=== PATIENT | female | born 1945 | race Caucasian/White ===

== ENCOUNTER 2016-10-28 13:17 | Observation (INO) ==
[2016-10-28] MEDS ORDERED: Naloxone 0.4 MG/ML INJ IVP PRN (15:02)
[2016-10-28] MEDS ORDERED: 0.9 % Sodium Chloride 1,000 ML IVC SCH (15:15)
--- NOTE | 2016-10-28 15:53 | Internal Med History&Physical ---
<Anuja Dodd M - Last Filed: 10/28/16 16:46> Date of Encounter: 10/28/16 Time of Encounter: 15:50 Assessment and Plan (1) Atrial fibrillation with rapid ventricular response Current visit: No Status: Acute Patient with new onset Afib. Cardizem drip titrate to maintain HR 60-90. Urine tox screen TSH LFTs echocardiogram in the morning. (2) Febrile illness, acute Current visit: No Status: Acute [facility] reported patient's temperature reached 101. UA negative for UTI. CXR shows no active pulmonary disease. Patient complaining of facial swelling, pain and sore throat. Rapid strep was negative. Neck CT was suggestive of sinusitis which may be source of infection. Face CT ordered. Lactate was 3.1. Throat cultures and blood cultures ordered and sent at [facility]. 1L bolus given. Continue IV fluids 0.9NS at 80mL/hr. Ceftriaxone and Azithromycin IVPB recheck lactate (3) Sepsis Current visit: Yes Status: Acute elevated WBC of 15.2. Patient with reported fever of 101 at [facility] (per the provider's note). Tachycardia. Patient with facial pain and swelling and suspected sinusitis. Blood cultures ordered and sent by [facility] 1L bolus given. Initial lactate 3.1, repeat ordered Azithromycin and Ceftriaxone IVPB Qualifiers: Sepsis type: sepsis due to unspecified organism Qualified Code(s): A41.9 - Sepsis, unspecified organism (4) Face pain Current visit: Yes Status: Acute Patient reports swelling, pain and tenderness in the pre-auricular areas bilaterally. On exam, she does have firm swelling and tenderness bilaterally. Neck CT did not reveal any significant abnormalities, but suggested she may have sinusitis. Will obtain a face CT. (5) Unintended weight loss Current visit: No Status: Chronic Patient with significant unintended weight loss. She reports in the last year she has gone from 115 lbs to 77 lbs. She reports she had diarrhea for several months, but that resolved 1 months ago. She never had the diarrhea worked up. She also reports poor appetite for the last 6 months. She has significant family history of cancer, with 2 brothers who of esophageal and lung cancer , and her father of cancer as well. She has a 50+ pack year smoking history and continues to smoke. Concern her weight loss and cachexia is due to malignancy. CXR showed no active pulmonary disease, COPD and increase in interstitial lung markings likly due to chronic inflammation. CT of the neck did not reveal any abnormality. Nutrition consulted for dietary recommendations Patient should follow up with a PCP for cancer screenings including mammogram, colonoscopy, and chest CT. (6) COPD (chronic obstructive pulmonary disease) Current visit: Yes Status: Acute Patient with COPD diagnosis. She does not use oxygen at home. She denies any increased shortness of breath or coughing. Continue home dose of albuterol inhaler. Qualifiers: COPD type: emphysema Emphysema type: unspecified Qualified Code(s): J43.9 - Emphysema, unspecified (7) Polycythemia Current visit: Yes Status: Acute Patient with known history of polycythemia. She reports she was evaluated by a director of family service center and reports they said her polycythemia was due to her COPD. Hgb 18.5 and Hct 51.2 today, consistent with her diagnosis of polycythemia. Will recheck CBC tomorrow. (8) DVT prophylaxis Current visit: Yes Status: Acute Ambulate with assistance anti-embolic stockings Lovenox 40mg Sq daily Internal Medicine - H&P: HPI Chief complaint: afib Admitted From: Emergency Dept Plans for Post Hospital Care: Home History of present illness: Ms. Simmons is a 70 year old female with COPD and polycythemia who presented to [facility] ED with complaints of swelling and pain in her face and jaw. She reports the swelling appeared on the right side of her face on and was accompanied by pain in her throat. It went away on Sunday, but came back this morning on the left side as well as the right and she has the sore throat as well. She denies any fever, but reports chills. She denies congestion or runny nose. She reports her ears hurt and her throat hurts when she swallows or talks. She denies any chest pain, palpitations, increased shortness of breath or increased cough. She denies any nausea, vomiting or diarrhea, or dysuria. She reports she lost a significant amount of weight unintentionally in the last 2 years, and is now only 77 lbs. While she was at [facility] was noted that she went into A. fib with RVR, heart rate in the 140s to 150s. Her temperature also elder and was noted to be 101 in the report. Further evaluation in the [facility] revealed polycythemia with hemoglobin of 18.5 and hematocrit of 51.2. Elevated white blood cell count of 15.2. Troponin was negative at 0.01. Lactate was drawn and was found to be elevated at 3.1. UA was negative for infection, rapid strep was obtained and was negative. Chest x- ray showed no active pulmonary disease, COPD, increase in interstitial lung markings likely due to chronic inflammation. CT of the neck revealed no abnormalities. Patient was given a liter bolus given Rocephin IV piggyback and started on a Cardizem drip and transferred to [facility]. On exam, patient is alert and oriented, in no acute distress. She appears cachectic, her heart rate is controlled in the 70s to 80s on the Cardizem drip at 7.5 per hour. Lungs are clear bilaterally to auscultation, heart has a regular rhythm. She does not appear to have prominent masses bilaterally in the preauricular area, on palpation does not seem to be edematous, but is tender on the left. Past Med Surg Social Fam HX - Past Medical History Medical history: COPD, other (polycythemia) Psychiatric history: no psych history - Past Surgical History Surgical History: cataract, hysterectomy - Social History Smoking Status: Current every day smoker (54 Pack year history) Smokeless Tobacco Status: No Alcohol use: recent Drug use: none - Family History Father Adopted: No Family Member Ethnicity: Non- Living Status: Age at : 58 Cause of : cancer Hx Family Cancer: Yes Brother Living Status: Cause of : cancer Hx Family Cancer: Yes Internal Medicine - H&P: Meds Albuterol Sulfate [Proair Hfa] 2 puff IH Q6H 10/28/16 [History] Allergies No Known Allergies Allergy (Verified 03/28/15 11:12) All Systems PM: A 10-system review of systems was performed and is negative for pertinent findings except as documented above in the HPI. - Constitutional Constitutional: chills, fever(s), no night sweats - EENT Eyes: no change in vision, no discharge, no pain, no photophobia Ears: ear pain, no ear discharge, no tinnitus Nose, mouth and throat: sore throat, no dysphagia, no nasal discharge, no neck pain - Cardiovascular Cardiovascular ROS IM: no chest pain, no diaphoresis, no dyspnea, no lightheadedness, no palpitations, no syncope - Respiratory Respiratory: no cough, no dyspnea, no wheezing, no excessive phlegm production - Gastrointestinal Gastrointestinal: no abdominal pain, no diarrhea, no hematemesis, no hematochezia, no melena, no nausea, no vomiting - Genitourinary Genitourinary: no change in urinary stream, no dysuria, no flank pain, no hematuria - Musculoskeletal Musculoskeletal ROS IM: no numbness, no tingling - Integumentary Integumentary IM: no rash, no unusual bruising - Neurological Neurological ROS: no confusion, no convulsions, no focal weakness, no numbness, no tingling, no tremor(s) - Hematologic/Lymphatic Hematologic/Lymphatic: no easy bruising - Constitutional Vitals: Temp Pulse Resp BP Pulse Ox 99.2 F 85 16 138/96 98 10/28/16 14:57 10/28/16 14:57 10/28/16 14:57 10/28/16 14:57 10/28/16 14:57 General appearance: Present: cachectic, A&O X 3, pleasant, no acute distress - Head Head exam: Present: atraumatic, normocephalic - Eye Eye exam: Present: PERRL, conjuntiva pink, sclera anicteric Pupils: Present: PERRL - Neck Neck exam general surgery: Present: supple, trachea midline. Absent: lymphadenopathy - Respiratory Respiratory exam: Present: CTAB. Absent: accessory muscle use, rales, rhonchi, wheezes - Cardiovascular Cardiovascular exam: Present: irregular rhythm, +S1, +S2. Absent: diastolic murmur, gallop, rubs, systolic murmur - GI/Abdominal GI/Abdominal exam: Present: normal bowel sounds, soft, no peritoneal signs. Absent: distended, tenderness - Extremities Exam Extremities exam: Present: warm, radial pulses palpable and symetrical. Absent : calf tenderness, cyanotic, pedal edema - Neurological Exam Neurological exam: Present: CN II-XII intact, oriented X3, no focal deficits. Absent: facial droop, speech deficit - Skin Skin exam: Present: dry, intact Internal Med - H&P Results - Labs Labs: Labs from [facility]za: Hgb 18.5 Hct 51.2 Wbc 15.2 Plt 237 Na 133 K 4.0 Cl 88 CO2 24 BUN 15 Cr 0.78 Glu 121 Trop 0.01 Lactate 3.1 <Bernard Rincon - Last Filed: 10/28/16 17:56> Date of Encounter: 10/28/16 Internal Medicine - H&P: HPI History of present illness: Ms. Simmons is a 70 year old female All Systems PM: A 10-system review of systems was performed and is negative for pertinent findings except as documented above in the HPI. - Constitutional Vitals: Temp Pulse Resp BP Pulse Ox 99.2 F 85 18 138/96 94 10/28/16 14:57 10/28/16 14:57 10/28/16 16:49 10/28/16 14:57 10/28/16 16:49 Internal Med - H&P Results - Labs Labs: Cardiac Enzymes 10/28/16 Range/Units 16:20 Troponin I 0.01 (0-0.03) ng/mL Liver Function 10/28/16 Range/Units 16:20 Total Bilirubin 0.6 (0.2-1.2) mg/dL Direct Bilirubin 0.3 (0.0-0.5) mg/dL AST 19 (5-34) Units/L ALT 9 (0-55) Units/L Alkaline Phosphatase 50 (38-126) Units/L Albumin 3.3 L (3.5-5.0) g/dL - Attending Attestation I have independently interviewed and examined this patient. I have reviewed the EMR extensively and discussed plan of care the resident/nurse practitioner. 70 Y/O F with PMH of COPD and Tobacco abuse, Polycythemia, presented to outside facility with complains of unintentional weight loss for several months, bilateral jaw pain and swelling. She was found to be in Afib with RVR, and was found to be febrile to temperature of 101. She is evaluated at bedside and complained of pain in the back of her throat since 2 days ago and bilateral jaw tenderness and swelling since 2 days ago. She denies myalgia, but she endorses chills, she denies rhinorrhea, sick contacts or recent travels, she denies chest pain, she denies SOB, she smokes daily and has a chronic cough that has not worsened, no change in sputum color, no odynophagia, no dysphagia, she has significant family hx of cancer of the head and neck. Physical exam reveals a cachectic, chronically ill-looking patient in no form of distress, HR 110, she has facial roundness on the maxillary region with tenderness on palpation, no fluctauncy, and she has posterior cervical lymph nodes bilaterally, no pre-auricular drainage, throat exam reveals no hyperemia, no visible masses, chest is clear bilaterally, HS S1, S2 only, no m/g/r, abdomen is scaphoid. Labs and Imaging reviewed: Leukocytosis with left shift, polycythemia, hyponatremia, strept swab negative, Lactate 3.1, repeat 1.2, TSH WNL, coagulation panel WNL. Neck CT shows emphysema, paranasal sinus disease, worse in R sphenoid, atherosclerotic disease. CXR with evidence of COPD and interstitial infiltrates. Assessment and Plan: Suspected sepsis with likely source in head and neck, possible sinus disease, unlikely malignancy, follow blood and throat culture, obtain facial CT without contrast, repeat lactate , start antibiotic with streptococcus coverage , Newly diagnosed Afib, no chest pain, obtain Utox, check ECHO. Continue Cardizem , start po and titrate off slowly, smoking cessation encouraged, NRT prn. Polycythemia, chronic, stable secondary to chronic hypoxia from smoking Facial pain, as in management of suspected sepsis, pain control Rest of details as in [facility] documentation
[2016-10-28] MEDS: 0.9 % Sodium Chloride 1,000 ML IVC SCH (16:05)
[2016-10-28] MEDS: Azithromycin 500 MG in D5% in Water 250 ML IVPB SCH (17:10)
[2016-10-28 17:12] LABS: Albumin 3.3 g/dL (3.5-5.0); Bilirubin,Direct 0.3 mg/dL (0.0-0.5); Bilirubin,Indirect 0.3 mg/dL (0.0-1.2); Bilirubin,Total 0.6 mg/dL (0.2-1.2); Globulin 3.2 g/dL (2.4-3.5); Total Protein 6.5 g/dL (6.0-8.3)
[2016-10-28 17:33] LABS: Thyroid Stimulating Hormone 0.885 mcIU/mL (0.350-4.840)
[2016-10-28 21:16] LABS: Amphetamine Screen,Urine Negative ng/mL (Cutoff=1000); Barbiturate Screen,Urine Negative ng/mL (Cutoff=200); Benzodiazepines Screen,Urine Negative ng/mL (Cutoff=200); Cannabinoid Screen,Urine Negative ng/mL (Cutoff = 50); Cocaine Screen,Urine Negative ng/mL (Cutoff= 300); Opiate Screen,Urine Negative ng/mL (Cutoff=300); Phencyclidine Screen,Urine Negative ng/mL (Cutoff=25)
[2016-10-28] MEDS: Melatonin 3 MG TABLET PO PRN (22:29)
[2016-10-29] MEDS: 0.9 % Sodium Chloride 1,000 ML IVC SCH (02:00)
[2016-10-29] MEDS: *HR* Enoxaparin 40 MG/0.4 ML SYRINGE SQ SCH (05:29)
[2016-10-29] MEDS: Acetaminophen 325 MG TABLET PO PRN (05:35)
[2016-10-29 06:14] LABS: BUN/Creatinine Ratio 17 (6-26); Blood Urea Nitrogen 10 mg/dL (7-20); Calcium 8.7 mg/dL (8.6-10.8); Carbon Dioxide 21 mEq/L (19-29); Chloride 98 mEq/L (98-109); Glucose 79 mg/dL (70-99); Osmolality,Calculated 272 (280-300); Sodium 132 mEq/L (136-145); eGFR For African Americans > 60 (> 60); eGFR For Non-African Americans > 60 (> 60)
[2016-10-29 06:19] LABS: Potassium 3.2 mEq/L (3.5-4.5)
[2016-10-29 06:53] LABS: Basophils # 0.1 K/mcL (0.0-0.2); Basophils % 0.6 %; Eosinophils # 0.1 K/mcL (0.0-0.6); Eosinophils % 0.6 %; Hematocrit 38.7 % (35.3-44.9); Hemoglobin 13.2 g/dL (11.5-15.4); Immature Granulocytes % 0.3 % (0-4); Immature Platelets 5.9 % (1.1-6.1); Lymphocytes # 1.8 K/mcL (0.6-4.6); Lymphocytes % 19.7 %; Mean Corpuscular HGB Conc 34.1 g/dL (31.6-35.5); Mean Corpuscular Hemoglobin 33.8 pg (28.0-33.3); Mean Platelet Volume 9.9 fL (9.4-12.4); Monocytes % 11.1 %; Neutrophils # 6.3 K/mcL (1.6-8.9); Platelet Count 174 K/mcL (140-400); Red Blood Count 3.91 M/mcL (3.82-4.97); Red Cell Distribution Width 11.9 % (11.5-14.5); Segmented Neutrophils % 67.7 %
--- NOTE | 2016-10-29 14:08 | Internal Med Progress Note ---
Date of Encounter: 11/06/16 Time of Encounter: 14:06 - Assessment and plan (1) Face pain Status: Resolved Assessment and plan: Ongoing face pain. CT head/CT films negative for any obvious infective process. Pain is better with pain medication. (2) Atrial fibrillation with rapid ventricular response Status: Inactive Assessment and plan: Patient has atrial fibrillation with rapid ventricular response. This is likely triggered by underlying infective process. We will control the rate with Cardizem. (3) COPD (chronic obstructive pulmonary disease) Status: Chronic Assessment and plan: Stable COPD. Qualifiers: COPD type: emphysema Emphysema type: unspecified Qualified Code(s): J43.9 - Emphysema, unspecified (4) Hypertension Status: Inactive Assessment and plan: Resume home medication Qualifiers: Hypertension type: essential hypertension Qualified Code(s): I10 - Essential (primary) hypertension - Subjective Interval history: Patient seen and examined. Chart reviewed. Patient looks ill. She complains of facial pain. Patient claims that she has these symptoms ongoing for last 3-4 days. Seen by [facility] emergency room. She was transferred here for further management. - Constitutional Vitals: Temp Pulse Resp BP Pulse Ox 98.7 F 67 16 126/80 92 10/29/16 11:47 10/29/16 11:47 10/29/16 11:47 10/29/16 11:47 10/29/16 11:47 General appearance: Present: cachectic, A&O X 3, pleasant, no acute distress - Head Head exam: Present: atraumatic, normocephalic - Eye Eye exam: Present: PERRL, conjuntiva pink, sclera anicteric Pupils: Present: PERRL - Neck Neck exam general surgery: Present: supple, trachea midline. Absent: lymphadenopathy - Respiratory Respiratory exam: Present: CTAB. Absent: accessory muscle use, rales, rhonchi, wheezes - Cardiovascular Cardiovascular exam: Present: RRR, +S1, +S2. Absent: diastolic murmur, gallop, rubs, systolic murmur - GI/Abdominal GI/Abdominal exam: Present: normal bowel sounds, soft, no peritoneal signs. Absent: distended, tenderness - Extremities Exam Extremities exam: Present: warm, radial pulses palpable and symetrical. Absent : calf tenderness, cyanotic, pedal edema - Neurological Exam Neurological exam: Present: CN II-XII intact, oriented X3, no focal deficits. Absent: pronater drift, facial droop, speech deficit - Skin Skin exam: Present: dry, intact Internal Medicine: Result - Labs CBC & Chem 7: 11/01/16 04:57 11/01/16 04:57 Labs: Short CBC 10/29/16 Range/Units 06:42 WBC 9.3 (4.3-11.1) K/mcL Hgb 13.2 D (11.5-15.4) g/dL Hct 38.7 (35.3-44.9) % Plt Count 174 (140-400) K/mcL Neutrophils # 6.3 (1.6-8.9) K/mcL BMP 10/29/16 05:11 Sodium 132 L Potassium 3.2 L Chloride 98 Carbon Dioxide 21 BUN 10 Creatinine 0.59 Glucose 79 Calcium 8.7 D Cardiac Enzymes 10/28/16 10/28/16 Range/Units 16:20 21:41 Troponin I 0.01 0.01 (0-0.03) ng/mL Liver Function 10/28/16 Range/Units 16:20 Total Bilirubin 0.6 (0.2-1.2) mg/dL Direct Bilirubin 0.3 (0.0-0.5) mg/dL AST 19 (5-34) Units/L ALT 9 (0-55) Units/L Alkaline Phosphatase 50 (38-126) Units/L Albumin 3.3 L (3.5-5.0) g/dL - Impressions Impressions Face CT 10/28/16 16:39 IMPRESSION: No acute traumatic injury of the facial bones. Advanced degenerative changes at the temporomandibular joint bilaterally. No findings specifically to explain patient's symptoms. D/ / 10/28/2016 22:38:55 Ronnie Lima MD / Earlene Lebron Interpreting Provider: Ronnie Lima MD Consult Discharge Plan - Plan Instructions: Diltiazem (By mouth), Prednisone (By mouth), Azithromycin (By mouth), Budesonide/Formoterol (By breathing), Rivaroxaban (By mouth), Atrial Fibrillation (DC), Chronic Obstructive Pulmonary Disease (DC), Sepsis (DC), Chronic Hypertension (DC) Referrals: Roa,Amy C, [facility] [Advanced Practice Nurse] - 11/20/16 1:00 pm Jay Chin, [Partnered Physician] - (Patient would like to establish with Dr. Jay Chin, please sched 1 week f/u COPD, Bone scan) Prescriptions: Azithromycin [Zithromax] 500 mg PO Q24H #8 tablet Budesonide/Formoterol 160/4.5 [Symbicort 160/4.5] 2 puff IH BIDR #1 hfa.aer.ad Diltiazem CD (24hr) [Cardizem CD] 180 mg PO DAILY #30 cap.er.24h PredniSONE 40 mg PO DAILY #8 tablet Rivaroxaban [Xarelto] 15 mg PO 1700 #30 tablet
[2016-10-29] MEDS ORDERED: Potassium Chloride Elixir 20 MEQ/15 ML UDC PO ONE (15:02)
[2016-10-29] MEDS: Azithromycin 500 MG in D5% in Water 250 ML IVPB SCH (15:26)
--- NOTE | 2016-10-29 21:13 | ECHO - Doppler Report ---
Echocardiogram Name: Nikkie Simmons Date of Study: 10/29/2016 Date: 1945 Ht: 51.0 in Medical Record#: [id number] Age: 70 Wt: 79.0 lb Gender: Female BSA: 1.12 Order #: [id number] Location: [facility] Room #: [id number] Reading Physician: Rodolfo Banks DO, FACNESTOR Matthews Home Support Worker: Holly Lowe RDCS Ordering Physician: Anuja Dodd CNP Primary Physician: None Indications: New onset atrial fibrillation Impressions: LVEF 60-65%. Normal LV chamber size, wall thickness and function. Normal right ventricular structure and function. Mild pulmonary hypertension. Estimated RVSP = 38 mmHg. No significant valvular dysfunction. Left Ventricular Wall Motion: Rest Echo Findings All wall segments showed normal motion. Findings: Study Quality * Technically adequate exam. ECG Findings * Atrial fibrillation. Left Ventricle * LVEF 60-65%. * Normal LV chamber size, wall thickness and function. Right Ventricle * Normal right ventricular structure and function. Left Atrium * Normal left atrial size. Right Atrium * Normal right atrial size. Interatrial Septum * No evidence of PFO by color Doppler. Aortic Valve * Trileaflet aortic valve. * Mildly sclerotic aortic valve leaflets. * No aortic regurgitation. * No aortic stenosis. Mitral Valve * Normal mitral valve structure and function. * No mitral regurgitation. * No mitral stenosis. Tricuspid Valve * Normal tricuspid valve structure and function. * Trace tricuspid regurgitation. * Mild pulmonary hypertension. * Estimated RVSP is 38 mmHg. * Estimated RA pressure is 5 mmHg. Pulmonic Valve * Normal pulmonic valve structure and function. * No pulmonic regurgitation. Aorta * Normally sized aortic root. Pericardium * The pericardium appears normal. IVC * Normal IVC dimensions and inspiratory collapse. Pulmonary Artery * Normal visualized portions of the main pulmonary artery. History Hypertension History of Smoking Years 50 Packs 1 Family History of CAD Measurements: BP: 113/ 65 2D Normal Values RVIDd: 2.70 cm <2.7 cm IVSd: .60 cm 0.6 - 1.0 cm LVIDd: 4.20 cm 3.7 - 5.6 cm LVPWd: .70 cm 0.6 - 1.1 cm LVIDs: 2.70 cm 1.5 - 3.6 cm AO: 2.30 cm < 4.0 cm LA: 2.90 cm 2.0 - 4.0cm %FS: 35.70 cm >25 % LVOT Diam: 1.80 cm LA volume: 24 Mitral Valve Peak E:.84 m/sec Peak A:.33 m/sec E/A Ratio:2.5 Peak E' Lat Tariq:7.8 cm/s Peak E' Med Tariq:7.41 cm/s E/E' Lat Ratio:10.8 E/E' Med Ratio:11.4 Tricuspid Valve TV Regurg Peak Grad: 33.00mmHg TV Regurg Peak Tariq: 2.89m/sec Updated by Rodolfo Banks DO, FACCassie, NESTOR, SHIV on 10/29/2016 9:08:00 PM electronically signed on 10/29/2016 9:08:48 PM with status of Final Wall Motion Moreno: 1=Normal, 2=Hypokinesis, 3=Akinesis, 4=Dyskinesis, 5=Aneurysmal, 6=Hyperkinetic, X=Not Visualized (Blank)=Missing
[2016-10-29] MEDS: Melatonin 3 MG TABLET PO PRN (22:01)
[2016-10-30] MEDS: Acetaminophen 325 MG TABLET PO PRN (03:20)
[2016-10-30 04:50] LABS: Basophils # 0.1 K/mcL (0.0-0.2); Basophils % 0.7 %; Eosinophils # 0.1 K/mcL (0.0-0.6); Eosinophils % 1.8 %; Hematocrit 40.8 % (35.3-44.9); Hemoglobin 14.1 g/dL (11.5-15.4); Immature Granulocytes % 0.3 % (0-4); Lymphocytes # 1.9 K/mcL (0.6-4.6); Lymphocytes % 26.1 %; Mean Corpuscular HGB Conc 34.6 g/dL (31.6-35.5); Mean Corpuscular Hemoglobin 34.6 pg (28.0-33.3); Mean Platelet Volume 10.5 fL (9.4-12.4); Monocytes # 0.7 K/mcL (0.0-1.3); Neutrophils # 4.4 K/mcL (1.6-8.9); Platelet Count 176 K/mcL (140-400); Red Blood Count 4.08 M/mcL (3.82-4.97); Red Cell Distribution Width 11.9 % (11.5-14.5); Segmented Neutrophils % 61.1 %
[2016-10-30 05:03] LABS: Alanine Aminotransferase 9 Units/L (0-55); Albumin 2.8 g/dL (3.5-5.0); Albumin/Globulin Ratio 0.9 (1.1-2.2); Alkaline Phosphatase 47 Units/L (38-126); Aspartate Amino Transferase 17 Units/L (5-34); BUN/Creatinine Ratio 11 (6-26); Bilirubin,Total 0.6 mg/dL (0.2-1.2); Blood Urea Nitrogen 7 mg/dL (7-20); Calcium 9.5 mg/dL (8.6-10.8); Carbon Dioxide 21 mEq/L (19-29); Chloride 103 mEq/L (98-109); Globulin 3.1 g/dL (2.4-3.5); Glucose 79 mg/dL (70-99); Osmolality,Calculated 277 (280-300); Potassium 3.2 mEq/L (3.5-4.5); Sodium 135 mEq/L (136-145); Total Protein 5.9 g/dL (6.0-8.3); eGFR For African Americans > 60 (> 60); eGFR For Non-African Americans > 60 (> 60)
[2016-10-30] MEDS: *HR* Enoxaparin 40 MG/0.4 ML SYRINGE SQ SCH (05:52)
--- NOTE | 2016-10-30 09:55 | Internal Med Progress Note ---
<Iva Noel - Last Filed: 10/30/16 15:51> Date of Encounter: 10/30/16 Time of Encounter: 09:20 - Assessment and plan (1) Face pain Current Visit: Yes Status: Acute Assessment and plan: Suspect TMJ degenerative changes per Face CT: Face CT 10/28/16 16:39 Advanced degenerative changes at the temporomandibular joint bilaterally. No findings specifically to explain patient's symptoms. (2) Atrial fibrillation with rapid ventricular response Current Visit: No Status: Acute Assessment and plan: Afib RVR, EKG 10/28/16 on admission. Possible LA hypertrophy, with underlying lung disease. Echo EF 60-65%, normal LV size, wall thickness and function. No evidence of LA or RA enlargement. Mild PAH RVSP 38 No VHD Possible manifestation of vasculitis? Malignancy? Has over 50 py smoking history. Transition to oral cardizem. TSH wnl, UDS neg. Will discuss long-term a/c when pt more receptive. CHADVASC 3 (3) COPD (chronic obstructive pulmonary disease) Current Visit: Yes Status: Acute Assessment and plan: Stable COPD. Qualifiers: COPD type: emphysema Emphysema type: unspecified Qualified Code(s): J43.9 - Emphysema, unspecified (4) Hypertension Current Visit: No Status: Acute Assessment and plan: Resume home medication, steady SBP 130s. Qualifiers: Hypertension type: unspecified secondary hypertension Qualified Code(s): I15.9 - Secondary hypertension, unspecified; I15 - Secondary hypertension (5) Unintended weight loss Current Visit: No Status: Chronic Assessment and plan: Unintentional weight loss, with BMI 16.5, over 50 years smoking. Upon interview, she did not have a screening c-scope, has not had medical care. Concern for underlying malignancy, paraneoplastic process contributing to Afib as well. Will order for CT Chest, CT Abd/Pelvis with contrast. - Subjective Interval history: Pt seen/eval at bedside. She would endorse general events prompting hospitalization though recollection is vague. Affirms PMH COPD, drinking alcohol about 6+ beers in one sitting daily to every other day. Also smokes about 1/2 to 1ppd going on since teens. She denies any heart racing, chest pain , pressure, dyspnea, nvd. - Constitutional Vitals: Temp Pulse Resp BP Pulse Ox 98.2 F 75 17 138/69 95 10/30/16 07:25 10/30/16 07:25 10/30/16 07:25 10/30/16 07:25 10/30/16 07:25 General appearance: Present: cachectic, A&O X 3, pleasant, no acute distress - Head Head exam: Present: atraumatic, normocephalic - Eye Eye exam: Present: EOMI, sclera anicteric - ENT ENT exam: Present: mucous membranes moist - Neck Neck exam general surgery: Present: supple, trachea midline - Respiratory Respiratory exam: Present: prolonged expiratory phase, rhonchi, wheezes - Cardiovascular Cardiovascular exam: Present: +S1, +S2. Absent: JVD - GI/Abdominal GI/Abdominal exam: Present: soft, no peritoneal signs. Absent: tenderness - Extremities Exam Extremities exam: Present: warm, radial pulses palpable and symetrical - Neurological Exam Neurological exam: Present: strengths equal and symetr throughout. Absent: facial droop Internal Medicine: Result - Labs CBC & Chem 7: 10/30/16 03:26 10/30/16 03:26 Labs: Short CBC 10/30/16 Range/Units 03:26 WBC 7.1 (4.3-11.1) K/mcL Hgb 14.1 (11.5-15.4) g/dL Hct 40.8 (35.3-44.9) % Plt Count 176 (140-400) K/mcL Neutrophils # 4.4 (1.6-8.9) K/mcL BMP 10/30/16 03:26 Sodium 135 L Potassium 3.2 L Chloride 103 Carbon Dioxide 21 BUN 7 Creatinine 0.63 Glucose 79 Calcium 9.5 Liver Function 10/30/16 Range/Units 03:26 Total Bilirubin 0.6 (0.2-1.2) mg/dL AST 17 (5-34) Units/L ALT 9 (0-55) Units/L Alkaline Phosphatase 47 (38-126) Units/L Albumin 2.8 L (3.5-5.0) g/dL - Impressions Impressions Face CT 10/28/16 16:39 IMPRESSION: No acute traumatic injury of the facial bones. Advanced degenerative changes at the temporomandibular joint bilaterally. No findings specifically to explain patient's symptoms. D/ / 10/28/2016 22:38:55 Ronnie Lima MD / Earlene Lebron Interpreting Provider: Ronnie Lima MD Consult Discharge Plan - Plan Referrals: NO,PCP [Primary Care Provider] - <Сергей Davis P - Last Filed: 10/30/16 18:58> Date of Encounter: 10/30/16 - Assessment and plan (1) Face pain Current Visit: Yes Status: Acute (2) Atrial fibrillation with rapid ventricular response Current Visit: No Status: Acute (3) COPD (chronic obstructive pulmonary disease) Current Visit: Yes Status: Acute Qualifiers: COPD type: emphysema Emphysema type: unspecified Qualified Code(s): J43.9 - Emphysema, unspecified (4) Hypertension Current Visit: No Status: Acute Qualifiers: Hypertension type: unspecified secondary hypertension Qualified Code(s): I15.9 - Secondary hypertension, unspecified; I15 - Secondary hypertension - Constitutional Vitals: Temp Pulse Resp BP Pulse Ox 98.7 F 69 16 153/86 94 10/30/16 14:59 10/30/16 14:59 10/30/16 14:59 10/30/16 14:59 10/30/16 14:59 Internal Medicine: Result - Labs CBC & Chem 7: 10/30/16 03:26 10/30/16 03:26 Labs: Short CBC 10/30/16 Range/Units 03:26 WBC 7.1 (4.3-11.1) K/mcL Hgb 14.1 (11.5-15.4) g/dL Hct 40.8 (35.3-44.9) % Plt Count 176 (140-400) K/mcL Neutrophils # 4.4 (1.6-8.9) K/mcL BMP 10/30/16 03:26 Sodium 135 L Potassium 3.2 L Chloride 103 Carbon Dioxide 21 BUN 7 Creatinine 0.63 Glucose 79 Calcium 9.5 Liver Function 10/30/16 Range/Units 03:26 Total Bilirubin 0.6 (0.2-1.2) mg/dL AST 17 (5-34) Units/L ALT 9 (0-55) Units/L Alkaline Phosphatase 47 (38-126) Units/L Albumin 2.8 L (3.5-5.0) g/dL - Impressions Impressions Face CT 10/28/16 16:39 IMPRESSION: No acute traumatic injury of the facial bones. Advanced degenerative changes at the temporomandibular joint bilaterally. No findings specifically to explain patient's symptoms. D/ / 10/28/2016 22:38:55 Ronnie Lima MD / Earlene Lebron Interpreting Provider: Ronnie Lima MD - Attending Attestation I examined this patient and my medical decision-making was reviewed with the INDUCTION COORDINATION ENGINEER/PA/Advanced Practice Nurse/Resident Physician. I agree with the documented findings, disposition and treatment plan as described except to the extent set forth below.
[2016-10-30] MEDS ORDERED: Potassium Chloride Elixir 20 MEQ/15 ML UDC PO ONE (15:56)
[2016-10-30] MEDS ORDERED: Magnesium Oxide 400 MG TABLET PO SCH (16:00)
[2016-10-30] MEDS: Azithromycin 500 MG in D5% in Water 250 ML IVPB SCH (17:12)
--- NOTE | 2016-10-30 19:00 | Electrocardiograph Report ---
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
[2016-10-31 05:41] LABS: Basophils # 0.1 K/mcL (0.0-0.2); Basophils % 0.9 %; Eosinophils # 0.3 K/mcL (0.0-0.6); Eosinophils % 3.2 %; Hematocrit 41.9 % (35.3-44.9); Hemoglobin 14.7 g/dL (11.5-15.4); Immature Granulocytes % 0.2 % (0-4); Lymphocytes # 1.8 K/mcL (0.6-4.6); Mean Corpuscular HGB Conc 35.1 g/dL (31.6-35.5); Mean Corpuscular Hemoglobin 34.8 pg (28.0-33.3); Mean Corpuscular Volume 99.1 fL (83.0-100.0); Mean Platelet Volume 10.4 fL (9.4-12.4); Monocytes # 0.7 K/mcL (0.0-1.3); Monocytes % 8.9 %; Neutrophils # 5.2 K/mcL (1.6-8.9); Platelet Count 205 K/mcL (140-400); Red Blood Count 4.23 M/mcL (3.82-4.97); Red Cell Distribution Width 11.9 % (11.5-14.5); Segmented Neutrophils % 64.8 %
[2016-10-31 06:04] LABS: Alanine Aminotransferase 12 Units/L (0-55); Albumin 2.9 g/dL (3.5-5.0); Albumin/Globulin Ratio 0.9 (1.1-2.2); Alkaline Phosphatase 48 Units/L (38-126); Aspartate Amino Transferase 18 Units/L (5-34); BUN/Creatinine Ratio 8 (6-26); Bilirubin,Total 0.5 mg/dL (0.2-1.2); Blood Urea Nitrogen 5 mg/dL (7-20); Calcium 9.4 mg/dL (8.6-10.8); Carbon Dioxide 22 mEq/L (19-29); Chloride 102 mEq/L (98-109); Globulin 3.1 g/dL (2.4-3.5); Glucose 80 mg/dL (70-99); Osmolality,Calculated 280 (280-300); Potassium 3.3 mEq/L (3.5-4.5); Sodium 137 mEq/L (136-145); eGFR For African Americans > 60 (> 60); eGFR For Non-African Americans > 60 (> 60)
[2016-10-31] MEDS: *HR* Enoxaparin 40 MG/0.4 ML SYRINGE SQ SCH (06:29)
[2016-10-31] MEDS: Potassium Chloride Elixir 20 MEQ/15 ML UDC PO SCH (09:24)
[2016-10-31] MEDS: Magnesium Oxide 400 MG TABLET PO SCH (09:24)
--- NOTE | 2016-10-31 09:43 | Internal Med Progress Note ---
<Iva Noel - Last Filed: 10/31/16 17:18> Date of Encounter: 10/31/16 Time of Encounter: 09:00 - Assessment and plan (1) Face pain Current Visit: Yes Status: Acute Assessment and plan: Suspect TMJ degenerative changes per Face CT: Face CT 10/28/16 16:39 Advanced degenerative changes at the temporomandibular joint bilaterally. No findings specifically to explain patient's symptoms. Improved, no signs of soft tissue swelling or airway compromise (2) Atrial fibrillation with rapid ventricular response Current Visit: No Status: Acute Assessment and plan: Afib RVR, EKG 10/28/16 on admission. Possible LA hypertrophy, with underlying lung disease. Echo EF 60-65%, normal LV size, wall thickness and function. No evidence of LA or RA enlargement. Mild PAH RVSP 38 No VHD Possible manifestation of vasculitis? Malignancy? Has over 50 py smoking history. Transition to oral cardizem. TSH wnl, UDS neg. Patient is agreeable to long-term a/c, we discussed R/B/A, she would prefer once -a-day DOAC. DC lovenox. Will start xarelto this evening, SW consult for butler concerns. CHADVASC 3 (3) COPD (chronic obstructive pulmonary disease) Current Visit: Yes Status: Acute Assessment and plan: Stable COPD. Due to persistent wheeze, will start oral prednisone 10/31/16, aim 5 day course. Qualifiers: COPD type: emphysema Emphysema type: unspecified Qualified Code(s): J43.9 - Emphysema, unspecified (4) Hypertension Current Visit: No Status: Acute Assessment and plan: Resume home medication. Will add prn hydralazine for SBP>170 Qualifiers: Hypertension type: unspecified secondary hypertension Qualified Code(s): I15.9 - Secondary hypertension, unspecified (5) Unintended weight loss Current Visit: No Status: Chronic Assessment and plan: Unintentional weight loss, with BMI 16.5, over 50 years smoking. Upon interview, she did not have a screening c-scope, has not had medical care. Concern for underlying malignancy, paraneoplastic process contributing to Afib as well. Abdomen/Pelvis CT 10/30/16 15:54 IMPRESSION: Punctate hypodensities in the spleen are most consistent with hemangiomas or granuloma. No mass or adenopathy is otherwise identified. Small right pleural effusion. Chest CT 10/30/16 15:54 IMPRESSION: Small right pleural effusion. Mild right basilar atelectasis. No intrathoracic mass or adenopathy is identified. Osteo sclerotic foci, most prominent at C5 and C6. (Also reference is made to sclerotic focus in the L2 vertebral body on CT abdomen. ) Although the sclerotic lesions may be reactive, metastasis of unknown primary is considered. Correlation with bone scan would be helpful. Will order for bone scan as outpatient. - Subjective Interval history: Pt seen/eval at bedside. She continues to have some cough and wheeze. She is agreeable to superintendent terminal ac, prefers xarelto. - Constitutional Vitals: Temp Pulse Resp BP Pulse Ox 98.2 F 74 15 162/96 95 10/31/16 07:21 10/31/16 07:21 10/31/16 07:21 10/31/16 07:21 10/31/16 07:21 General appearance: Present: cachectic, A&O X 3, pleasant, no acute distress, underweight - Head Head exam: Present: atraumatic, normocephalic - Eye Eye exam: Present: sclera anicteric - ENT ENT exam: Present: mucous membranes moist - Neck Neck exam general surgery: Present: supple, trachea midline - Respiratory Respiratory exam: Present: prolonged expiratory phase, rhonchi, wheezes ( scattered). Absent: accessory muscle use - Cardiovascular Cardiovascular exam: Present: +S1, +S2. Absent: JVD - GI/Abdominal GI/Abdominal exam: Present: soft, no peritoneal signs. Absent: tenderness - Extremities Exam Extremities exam: Present: warm, radial pulses palpable and symetrical Internal Medicine: Result - Labs CBC & Chem 7: 10/31/16 04:52 10/31/16 04:52 Labs: Short CBC 10/31/16 Range/Units 04:52 WBC 8.1 (4.3-11.1) K/mcL Hgb 14.7 (11.5-15.4) g/dL Hct 41.9 (35.3-44.9) % Plt Count 205 (140-400) K/mcL Neutrophils # 5.2 (1.6-8.9) K/mcL BMP 10/31/16 04:52 Sodium 137 Potassium 3.3 L Chloride 102 Carbon Dioxide 22 BUN 5 L Creatinine 0.61 Glucose 80 Calcium 9.4 Liver Function 10/31/16 Range/Units 04:52 Total Bilirubin 0.5 (0.2-1.2) mg/dL AST 18 (5-34) Units/L ALT 12 (0-55) Units/L Alkaline Phosphatase 48 (38-126) Units/L Albumin 2.9 L (3.5-5.0) g/dL - Impressions Impressions Abdomen/Pelvis CT 10/30/16 15:54 IMPRESSION: Punctate hypodensities in the spleen are most consistent with hemangiomas or granuloma. No mass or adenopathy is otherwise identified. Small right pleural effusion. D/ / Terrence Gonzalez MD / Terrence Gonzalez MD Interpreting Provider: Terrence Gonzalez MD Chest CT 10/30/16 15:54 IMPRESSION: Small right pleural effusion. Mild right basilar atelectasis. No intrathoracic mass or adenopathy is identified. Osteo sclerotic foci, most prominent at C5 and C6. (Also reference is made to sclerotic focus in the L2 vertebral body on CT abdomen. ) Although the sclerotic lesions may be reactive, metastasis of unknown primary is considered. Correlation with bone scan would be helpful. D/ / Terrence Gonzalez MD / Terrence Gonzalez MD Interpreting Provider: Terrence Gonzalez MD Consult Discharge Plan - Plan Referrals: NO,PCP [Primary Care Provider] - <Ad Erazo - Last Filed: 10/31/16 23:29> Date of Encounter: 10/31/16 - Assessment and plan (1) Atrial fibrillation Current Visit: Yes Status: Acute Assessment and plan: Change to long active Cardizem. Qualifiers: Atrial fibrillation type: persistent Qualified Code(s): I48.1 - Persistent atrial fibrillation (2) Face pain Current Visit: Yes Status: Acute (3) Hypertension Current Visit: No Status: Acute Qualifiers: Hypertension type: essential hypertension Qualified Code(s): I10 - Essential (primary) hypertension (4) Febrile illness, acute Current Visit: No Status: Resolved (5) COPD (chronic obstructive pulmonary disease) Current Visit: Yes Status: Acute Qualifiers: COPD type: emphysema Emphysema type: unspecified Qualified Code(s): J43.9 - Emphysema, unspecified (6) Unintended weight loss Current Visit: No Status: Chronic - Constitutional Vitals: Temp Pulse Resp BP Pulse Ox 98.5 F 83 20 157/92 94 10/31/16 19:00 10/31/16 19:00 10/31/16 19:00 10/31/16 19:00 10/31/16 19:00 Internal Medicine: Result - Labs CBC & Chem 7: 10/31/16 04:52 10/31/16 04:52 Labs: Short CBC 10/31/16 Range/Units 04:52 WBC 8.1 (4.3-11.1) K/mcL Hgb 14.7 (11.5-15.4) g/dL Hct 41.9 (35.3-44.9) % Plt Count 205 (140-400) K/mcL Neutrophils # 5.2 (1.6-8.9) K/mcL BMP 10/31/16 04:52 Sodium 137 Potassium 3.3 L Chloride 102 Carbon Dioxide 22 BUN 5 L Creatinine 0.61 Glucose 80 Calcium 9.4 Liver Function 10/31/16 Range/Units 04:52 Total Bilirubin 0.5 (0.2-1.2) mg/dL AST 18 (5-34) Units/L ALT 12 (0-55) Units/L Alkaline Phosphatase 48 (38-126) Units/L Albumin 2.9 L (3.5-5.0) g/dL - Impressions Impressions Abdomen/Pelvis CT 10/30/16 15:54 IMPRESSION: Punctate hypodensities in the spleen are most consistent with hemangiomas or granuloma. No mass or adenopathy is otherwise identified. Small right pleural effusion. D/ / Terrence Gonzalez MD / Terrence Gonzalez MD Interpreting Provider: Terrence Gonzalez MD - Attending Attestation I examined this patient and my medical decision-making was reviewed with the Resident Physician on 10/31/16. I agree with the documented findings, disposition and treatment plan as described except to the extent set forth below. Ms. Simmons is currently admitted for atrial fibrillation and face pain. She is moderate to high risk due to potential cardiac worsening. Ms. Simmons is resting comfortably. She has no chest pain or dyspnea. On PO Cardizem. No new issues overnight. Exam Alert. Comfortable Heart irreg - not tachy Lungs clear I/P 1. Persistent a fib 2. Face pain 3. Sclerotic bone - bone scan as outpatient Further diagnoses and plan as above.
[2016-10-31] MEDS: predniSONE 20 MG TABLET PO SCH (12:33)
[2016-10-31] MEDS ORDERED: *HR* Rivaroxaban 15 MG TABLET PO SCH (17:00)
[2016-10-31] MEDS ORDERED: Azithromycin 250 MG TABLET PO SCH (17:00)
[2016-10-31] MEDS: Melatonin 3 MG TABLET PO PRN (20:35)
[2016-11-01 06:12] LABS: Basophils % 0.2 %; Hematocrit 44.3 % (35.3-44.9); Hemoglobin 15.5 g/dL (11.5-15.4); Immature Granulocytes % 0.3 % (0-4); Lymphocytes # 0.8 K/mcL (0.6-4.6); Lymphocytes % 7.8 %; Mean Corpuscular Hemoglobin 34.6 pg (28.0-33.3); Mean Corpuscular Volume 98.9 fL (83.0-100.0); Monocytes # 0.4 K/mcL (0.0-1.3); Monocytes % 4.5 %; Neutrophils # 8.4 K/mcL (1.6-8.9); Platelet Count 248 K/mcL (140-400); Red Blood Count 4.48 M/mcL (3.82-4.97); Red Cell Distribution Width 11.6 % (11.5-14.5); Segmented Neutrophils % 87.2 %
[2016-11-01 06:42] LABS: Alanine Aminotransferase 12 Units/L (0-55); Albumin 2.9 g/dL (3.5-5.0); Albumin/Globulin Ratio 0.9 (1.1-2.2); Alkaline Phosphatase 50 Units/L (38-126); Aspartate Amino Transferase 16 Units/L (5-34); BUN/Creatinine Ratio 25 (6-26); Bilirubin,Total 0.4 mg/dL (0.2-1.2); Calcium 10.3 mg/dL (8.6-10.8); Carbon Dioxide 22 mEq/L (19-29); Chloride 102 mEq/L (98-109); Globulin 3.2 g/dL (2.4-3.5); Glucose 108 mg/dL (70-99); Magnesium 1.6 mg/dL (1.6-2.6); Osmolality,Calculated 282 (280-300); Sodium 135 mEq/L (136-145); Total Protein 6.1 g/dL (6.0-8.3); eGFR For African Americans > 60 (> 60); eGFR For Non-African Americans > 60 (> 60)
[2016-11-01 06:43] LABS: Blood Urea Nitrogen 17 mg/dL (7-20); Potassium 4.5 mEq/L (3.5-4.5)
[2016-11-01] MEDS: Potassium Chloride Elixir 20 MEQ/15 ML UDC PO SCH (09:06)
[2016-11-01] MEDS: predniSONE 20 MG TABLET PO SCH (09:06)
[2016-11-01] MEDS: Magnesium Oxide 400 MG TABLET PO SCH (09:06)
--- NOTE | 2016-11-01 09:36 | Discharge Summary ---
<Iva Noel - Last Filed: 11/01/16 12:25> Date of Encounter: 11/01/16 Time of Encounter: 09:15 - Discharge Diagnosis (1) Face pain Priority: Primary Status: Resolved (2) Atrial fibrillation with rapid ventricular response Priority: Primary Status: Acute (3) COPD (chronic obstructive pulmonary disease) Priority: Secondary Status: Chronic Qualifiers: COPD type: emphysema Emphysema type: unspecified Qualified Code(s): J43.9 - Emphysema, unspecified (4) Hypertension Priority: Secondary Status: Chronic Qualifiers: Hypertension type: essential hypertension Qualified Code(s): I10 - Essential (primary) hypertension (5) Unintended weight loss Priority: Secondary Status: Chronic - Discharge Medications Prescriptions: Azithromycin [Zithromax] 500 mg PO Q24H #8 tablet Budesonide/Formoterol 160/4.5 [Symbicort 160/4.5] 2 puff IH BIDR #1 hfa.aer.ad Diltiazem CD (24hr) [Cardizem CD] 180 mg PO DAILY #30 cap.er.24h PredniSONE 40 mg PO DAILY #8 tablet Rivaroxaban [Xarelto] 15 mg PO 1700 #30 tablet Home Medications: Albuterol Sulfate [Proair Hfa] 2 puff IH Q6H 10/28/16 [History] Azithromycin [Zithromax] 500 mg PO Q24H #8 tablet 11/01/16 [Rx] Budesonide/Formoterol 160/4.5 [Symbicort 160/4.5] 2 puff IH BIDR #1 hfa.aer.ad 11/01/16 [Rx] Diltiazem CD (24hr) [Cardizem CD] 180 mg PO DAILY #30 cap.er.24h 11/01/16 [Rx] PredniSONE 40 mg PO DAILY #8 tablet 11/01/16 [Rx] Rivaroxaban [Xarelto] 15 mg PO 1700 #30 tablet 11/01/16 [Rx] Allergies/Adverse Reactions: Allergies No Known Allergies Allergy (Verified 03/28/15 11:12) Procedures/tests Complete & Pending: Procedures Performed prior 72 hours Category Date Time Status CT abd pelvis w iv and oral [CT] Routine Cat Scan 10/30/16 15:[address] chest w con [CT] Routine Cat Scan 10/30/16 15:54 Completed EKG [ECG 12 lead ECG] [ECG] Urgent Y 10/30/16 09:22 Completed EV echocardiogram Routine Y 10/29/16 09:40 Completed Date of admission: 10/28/16 14:45 Primary care physician: PCP NO Consults: 10/28/16 15:02 Consult to Nutrition [CONS] Routine Comment: Consulting Provider: NUTRITION Reason for Dietary Consult: PO Supplementation 10/31/16 09:37 Consult to Food Concession Manager [CONS] Routine Reason for SW Consult: Afib starting Xarelto, eval costs, thanks. Discharging clinician: Ad Erazo Anticipated date of discharge: 11/01/16 - Patient Status Disposition: Home, Self-Care Condition: Fair Functional capacity at discharge: independent ambulation Overall status at discharge: patient is progressing back to baseline - Ambulatory Orders Ambulatory Orders: NM bone scan whole body [NM] Time Frame: 1 Week, Facility: [facility], Location: Radiology - Discharge Instructions Instructions: Diltiazem (By mouth), Prednisone (By mouth), Azithromycin (By mouth), Budesonide/Formoterol (By breathing), Rivaroxaban (By mouth), Atrial Fibrillation (DC), Chronic Obstructive Pulmonary Disease (DC), Sepsis (DC), Chronic Hypertension (DC) Follow Up With: Amy Roa, ACUTE CARE PHYSICIAN [Advanced Practice Nurse] - 11/20/16 1:00 pm Jay Chin, [Partnered Physician] - (Patient would like to establish with Dr. Jay Chin, please sched 1 week f/u COPD, Bone scan) - Diet and Activity Activity: increase activity as tolerated Diet: advance to your usual diet Hospital course: Ms. Simmons is a 70 year old female Patient would present to [place] with chief concern: complaints of swelling and pain in her face and jaw. Additional palpitations with EKG disclosing Afib RVR. Subsequently started on cardizem gtt and transferred from [facility] to [facility]. Comorbidities would include: COPD, smoker, etoh use, polycythemia 2* COPD. Hospital course: Regarding facial pain, Face CT obtained: Face CT 10/28/16 16:39 Advanced degenerative changes at the temporomandibular joint bilaterally. No findings specifically to explain patient's symptoms. Echo: 60-65%, normal LV size, wall thickness and function. No evidence of LA or RA enlargement. Mild PAH RVSP 38 No VHD, TSH wnl, UDS negative. Due to smoking history and unintentional weight loss, prompted CT scan chest and Abd/Pelvis: Chest CT 10/30/16 15:54 IMPRESSION: Small right pleural effusion. Mild right basilar atelectasis. No intrathoracic mass or adenopathy is identified. Osteo sclerotic foci, most prominent at C5 and C6. (Also reference is made to sclerotic focus in the L2 vertebral body on CT abdomen. ) Although the sclerotic lesions may be reactive, metastasis of unknown primary is considered. Correlation with bone scan would be helpful. Abdomen/Pelvis CT 10/30/16 15:54 IMPRESSION: Punctate hypodensities in the spleen are most consistent with hemangiomas or granuloma. No mass or adenopathy is otherwise identified. Small right pleural effusion. Patient was transitioned to oral cardizem, remained in good rate control, experiencing no chest pain/lightheadedness. Appropriate candidate for long-term anticoagulation for her Afib, CHADVASC 3. She was started on Xarelto and tolerated well. Discussed R/B/A while on anticoagulation. Concern for COPD exacerbation, started on azithromycin, prednisone 5 day course. At time of discharge, patient was clinically improved, hemodynamically stable, progressing to baseline, and agreeable with plan of care. Patient was advised to seek immediate medical attention for any new or worsening symptoms including but not limited to fever, chills, chest pain, chest pressure, dyspnea, cough, abdominal pain, nausea, vomiting, diarrhea, bloody stool, urine and the patient voiced understanding. Patient would like to establish with primary care physician Dr. Jay Chin of [place]. Order for bone scan to f/u with Dr. Chin. - Time Spent with Patient Total time spent providing and/or coordinating discharge services: Greater than 30 minutes - Constitutional Vitals: Temp Pulse Resp BP Pulse Ox 98.2 F 79 15 153/84 98 11/01/16 07:00 11/01/16 07:00 11/01/16 07:00 11/01/16 07:00 11/01/16 07:00 General appearance: Present: cachectic, A&O X 3, pleasant, no acute distress, underweight - Head Head exam: Present: atraumatic, normocephalic - Eye Eye exam: Present: EOMI, sclera anicteric - ENT ENT exam: Present: mucous membranes moist - Neck Neck exam general surgery: Present: supple, trachea midline - Respiratory Respiratory exam: Absent: wheezes, tachypnea - Cardiovascular Cardiovascular exam: Present: RRR, +S1, +S2. Absent: JVD - GI/Abdominal GI/Abdominal exam: Present: soft, no peritoneal signs. Absent: tenderness - Extremities Exam Extremities exam: Present: warm, radial pulses palpable and symetrical. Absent : pedal edema - Back Exam Back exam: Absent: paraspinal tenderness, vertebral tenderness - Neurological Exam Neurological exam: Present: strengths equal and symetr throughout. Absent: speech deficit - VTE Documentation of Mechanical Device: Graduated compression elastic hosiery <Ad Erazo - Last Filed: 11/01/16 16:58> Date of Encounter: 11/01/16 - Discharge Diagnosis (1) Atrial fibrillation Priority: Primary Status: Acute Qualifiers: Atrial fibrillation type: persistent Qualified Code(s): I48.1 - Persistent atrial fibrillation (2) Face pain Status: Resolved (3) Hypertension Status: Chronic Qualifiers: Hypertension type: essential hypertension Qualified Code(s): I10 - Essential (primary) hypertension (4) Febrile illness, acute Priority: Secondary Status: Resolved (5) COPD (chronic obstructive pulmonary disease) Status: Chronic Qualifiers: COPD type: emphysema Emphysema type: unspecified Qualified Code(s): J43.9 - Emphysema, unspecified (6) Unintended weight loss Status: Chronic (7) Tobacco abuse Priority: Secondary Status: Chronic Procedures/tests Complete & Pending: Procedures Performed prior 72 hours Category Date Time Status CT abd pelvis w iv and oral [CT] Routine Cat Scan 10/30/16 15:[address] chest w con [CT] Routine Cat Scan 10/30/16 15:54 Completed EKG [ECG 12 lead ECG] [ECG] Urgent Y 10/30/16 09:22 Completed Date of admission: 10/28/16 14:45 Primary care physician: PCP NO Consults: 10/28/16 15:02 Consult to Nutrition [CONS] Routine Comment: Consulting Provider: NUTRITION Reason for Dietary Consult: PO Supplementation 10/31/16 09:37 Consult to Food Concession Manager [CONS] Routine Reason for SW Consult: Afib starting Xarelto, eval costs, thanks. Hospital course: Ms. Simmons is a 70 year old female - Time Spent with Patient Total time spent providing and/or coordinating discharge services: 39min - Constitutional Vitals: Temp Pulse Resp BP Pulse Ox 98.2 F 90 15 147/94 94 11/01/16 11:00 11/01/16 11:00 11/01/16 11:00 11/01/16 11:00 11/01/16 11:00 - Attending Attestation I examined this patient and my medical decision-making was reviewed with the Resident Physician on 11/01/16. I agree with the documented findings, disposition and treatment plan as described except to the extent set forth below. Ms. Simmons is doing better today. Her heartrate is controlled on PO Cardizem and her BP is better controlled today. No CP. No other symptoms. Vitals stable and afebrile. Exam Alert. Comfortable Heart irreg - not tachy Lungs clear Plan D/C home today Follow up with PCP for weight loss To have bone scan outpatient
[2016-11-01 11:12] VITALS: BP 147/94
[2016-11-01] MEDS ORDERED: Diltiazem CD (24hr) 180 MG CAPSULE PO SCH (18:00)
== END 2016-11-01 14:55 | disposition home or self-care (01) ==
LOC: 2NENU → SUATTDRO 14:45
PROVIDERS: ADMIT Internal Medicine; ATTEND Internal Medicine